=== PATIENT | male | born 1960 | race Caucasian/White ===

== ENCOUNTER 2020-06-07 22:58 | Emergency (ER) | payer OTHER ==
[2020-06-08] MEDS ORDERED: IBUPROFEN800 MG PO (00:32)
[2020-06-08] MEDS ORDERED: PERCOCET 5-3251 EACH PO (00:32)
[2020-06-08] MEDS ORDERED: CYCLOBENZAPRINE10 MG PO (00:32)
== END 2020-06-08 00:50 | disposition home or self-care (01) ==
LOC: FER 22:58
DX: S16.1XXA Strain of muscle, fascia and tendon at neck level, initial encounter (principal); E11.9 Type 2 diabetes mellitus without complications; I10 Essential (primary) hypertension; J44.9 Chronic obstructive pulmonary disease, unspecified; Z79.4 Long term (current) use of insulin; Z79.899 Other long term (current) drug therapy; X50.9XXA Other and unspecified overexertion or strenuous movements or postures, initial encounter
CPT/HCPCS: 72125; 96372; J1170; J1885; J2800; J7050

== ENCOUNTER 2020-12-26 15:28 | Emergency (ER) | payer OTHER ==
[~2020-12-26 15:28] MED LIST: CYCLOBENZAPRINE10 MG PO; IBUPROFEN800 MG PO; PERCOCET 5-3251 EACH PO
[2020-12-26 15:50] LABS: BASOPHIL 0.9 % (0-2); EOSINOPHIL 3.3 % (0-5); HCT 48.2 % (42.0-52.0); HGB 16.5 g/dl (13.2-18.0); LYMPHOCYTE 19.3 % (15-48); MCH 30.8 pg (25.0-31.0); MCHC 34.2 g/dL (32.0-36.0); MCV 90.1 fL (78.0-100.0); MONOCYTE 10.1 % (0-12); MPV 10.9 fL (6.0-9.5); NEUTROPHIL 66.1 % (41-80); NRBC 0; PLT 197 K/uL (150-400); RBC 5.35 M/uL (4.70-6.00); RDW 13.1 % (11.5-14.0); WBC 10.4 K/uL (4.0-10.5)
[2020-12-26 16:21] LABS: BILIRUBIN NEGATIVE (NEGATIVE); BLOOD NEGATIVE Ery/uL (NEGATIVE); CLARITY CLEAR (CLEAR); COLOR YELLOW (YELLOW); GLUCOSE (U) 3+ mg/dL (NORMAL); LEUKOCYTES NEGATIVE Leu/uL (NEGATIVE); NITRITE NEGATIVE (NEGATIVE); PROTEIN TRACE (LOW) mg/dL (NEGATIVE); SPECIFIC GRAVITY 1.025 (1.001-1.030); UROBILINOGEN 0.2 mg/dL (0.2-1.0)
[2020-12-26 16:24] LABS: AMPHETAMINES NEGATIVE (NEGATIVE); BARBITURATES NEGATIVE (NEGATIVE); ECSTASY (MDMA) NEGATIVE (NEGATIVE); MARIJUANA (THC) NEGATIVE (NEGATIVE); METHADONE NEGATIVE (NEGATIVE); OPIATES NEGATIVE (NEGATIVE); OXYCODONE NEGATIVE (NEGATIVE)
[2020-12-26 16:32] LABS: SPERM PRESENT
[2020-12-26 16:33] LABS: ALBUMIN 3.4 g/dL (3.4-5.0); BILIRUBIN - TOTAL 0.4 mg/dL (0.2-1.0); BUN/CREAT RATIO (CALC) 26.9 RATIO; CREATININE 0.78 mg/dL (0.67-1.17); GLOBULIN (CALCULATION) 3.6 g/dL; POTASSIUM 4.3 mmol/L (3.5-5.1)
[2020-12-26 17:02] LABS: CORONAVIRUS 2019 SARS-COV-2 NEGATIVE (NEGATIVE); INFLUENZA A NAA NEGATIVE (NEGATIVE)
[2020-12-26] MEDS ORDERED: COZAAR100 MG PO (18:13)
== END 2020-12-26 18:52 | disposition home or self-care (01) ==
LOC: FER 15:28
PROVIDERS: Internal Medicine
DX: R07.89 Other chest pain (principal); I10 Essential (primary) hypertension; E11.9 Type 2 diabetes mellitus without complications; J44.9 Chronic obstructive pulmonary disease, unspecified; Z87.891 Personal history of nicotine dependence; Z20.822 Contact with and (suspected) exposure to COVID-19
CPT/HCPCS: 36415; 71045; 80053; 80305; 81001; 84145; 84484; 85025; 93005; J2270; J3490; J7040; U0002

== ENCOUNTER 2021-08-01 01:27 | Emergency (ER) | payer OTHER ==
[~2021-08-01 01:27] MED LIST changes: +COZAAR100 MG PO
[2021-08-01 01:44] LABS: BASOPHIL 0.8 % (0-2); HCT 53.3 % (42.0-52.0); HGB 18.4 g/dl (13.2-18.0); MCHC 34.5 g/dL (32.0-36.0); MCV 89.7 fL (78.0-100.0); MONOCYTE 10.9 % (0-12); MPV 10.7 fL (6.0-9.5); NEUTROPHIL 63.1 % (41-80); NRBC 0; PLT 199 K/uL (150-400); RBC 5.94 M/uL (4.70-6.00); RDW 13.4 % (11.5-14.0); WBC 9.7 K/uL (4.0-10.5)
[2021-08-01 01:55] LABS: INR 0.98 (0.9-1.2); PROTHROMBIN TIME 12.4 SECONDS (11.8-13.4); PTT 28.2 SECONDS (24.4-34.7)
[2021-08-01 02:05] LABS: ALBUMIN 3.7 g/dL (3.4-5.0); BILIRUBIN - TOTAL 0.6 mg/dL (0.2-1.0); BUN/CREAT RATIO (CALC) 27.5 RATIO; CREATININE 0.69 mg/dL (0.67-1.17); GLOBULIN (CALCULATION) 3.9 g/dL; POTASSIUM 4.1 mmol/L (3.5-5.1); TOTAL PROTEIN 7.6 g/dL (6.4-8.2)
== END 2021-08-01 05:00 | disposition other institution (70) ==
LOC: FER 01:27
PROVIDERS: Internal Medicine
DX: I25.110 Atherosclerotic heart disease of native coronary artery with unstable angina pectoris (principal); I10 Essential (primary) hypertension; E11.9 Type 2 diabetes mellitus without complications; E78.5 Hyperlipidemia, unspecified; Z28.310 Unvaccinated for COVID-19; Z79.4 Long term (current) use of insulin; Z79.899 Other long term (current) drug therapy
CPT/HCPCS: 36415; 71045; 80053; 83735; 84145; 84484; 85025; 85610; 85730; 93005; J1644; J2270; J2405